=== PATIENT | female | born 1995 | race Caucasian/White ===

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

== ENCOUNTER 2018-06-22 16:14 | Emergency (ER) | payer BC ==
[2018-06-22 17:56] VITALS: BP 129/78
--- NOTE | 2018-06-22 18:17 | UC ---
Respiratory Complaint HPI - HPI Summary HPI Summary: 23-year-old female presents with 4 week history of chest congestion and nonproductive cough. States her symptoms initially started with cold-like symptoms clear nasal congestion, runny nose, sore throat, cough. With the exception of the cough she states that her other symptoms subsided after approximately one week. States over the last week she has noted increased chest congestion and cough has become more harsh particularly at night when she lays down. Denies fever, chills, chest pain, or shortness of breath. - History of Current Complaint Chief Complaint: UCRespiratory Stated Complaint: COUGH Time Seen by Provider: 06/22/18 18:02 Hx Obtained From: Patient Hx Last Menstrual Period: 05/25/18 Pain Intensity: 0 - Allergies/Home Medications Allergies/Adverse Reactions: Allergies Allergy/AdvReac Type Severity Reaction Status Date / Time No Known Allergies Allergy Verified 06/22/18 17:56 PMH/Surg Hx/FS Hx/Imm Hx Previously Healthy: Yes - Denies significant PMH - Surgical History Surgical History: None - Family History Known Family History: Positive: Unknown - Social History Occupation: Student Lives: Dormitory/Roommates Alcohol Use: Occasionally Substance Use Type: None Smoking Status (MU): Never Smoked Tobacco Review of Systems All Other Systems Reviewed And Are Negative: Yes Constitutional: Negative: Fever, Chills Eyes: Negative: Drainage, Eye Redness ENT: Negative: Sore Throat, Ear Ache, Nasal Discharge, Sinus Congestion, Sinus Pain/Tenderness Respiratory: Positive: Cough. Negative: Shortness Of Breath Cardiovascular: Negative: Palpitations, Chest Pain Gastrointestinal: Negative: Abdominal Pain, Vomiting, Diarrhea, Nausea Genitourinary: Positive: Negative Musculoskeletal: Positive: Negative Neurological: Positive: Negative Is Patient Immunocompromised?: No Physical Exam - Summary Physical Exam Summary: GENERAL APPEARANCE: Well developed, well nourished, alert and cooperative, and appears to be in no acute distress. EYES: Conjunctiva clear. No drainage. EARS: External auditory canals and tympanic membranes clear, hearing grossly intact. NOSE: No nasal discharge. THROAT: Pharynx normal. No tonsilar inflammation, swelling, exudate, or lesions. Uvula midline. Oral cavity normal. Teeth and gingiva in good general condition. NECK: Neck supple, non-tender without lymphadenopathy. CARDIAC: Normal S1 and S2. No S3, S4 or murmurs. Rhythm is regular. There is no peripheral edema, cyanosis or pallor. Extremities are warm and well perfused. Capillary refill is less than 2 seconds. Peripheral pulses intact. LUNGS: Clear to auscultation without rales, rhonchi, wheezing or diminished breath sounds. Non-productive cough. ABDOMEN: Positive bowel sounds. Soft, nondistended, nontender. No guarding or rebound. No masses or hepatosplenomegally. MUSKULOSKELETAL: ROM intact to all extremities. No joint erythema or tenderness. Normal muscular development. Normal gait. SKIN: Skin normal color, texture and turgor with no lesions or eruptions. Triage Information Reviewed: Yes Vital Signs: Initial Vital Signs Temp 98.8 F 06/22/18 17:53 Pulse 92 06/22/18 17:53 Resp 16 06/22/18 17:53 BP 129/78 06/22/18 17:53 Pulse Ox 100 06/22/18 17:53 Vital Signs Reviewed: Yes Respiratory Course/Dx - Course Course Of Treatment: 23-year-old female presents with 4 week history of chest congestion and nonproductive cough. States her symptoms initially started with cold-like symptoms clear nasal congestion, runny nose, sore throat, cough. With the exception of the cough she states that her other symptoms subsided after approximately one week. States over the last week she has noted increased chest congestion and cough has become more harsh particularly at night when she lays down. Denies fever, chills, chest pain, or shortness of breath. Afebrile. Vital signs stable. Exam was overall unremarkable except for a nonproductive cough. Considering the duration of her symptoms will treat her with a course of azithromycin for an acute bronchitis as well as recommend symptomatic treatment including Tessalon Perles 1 capsule every 8 hours as needed for cough. She is to return here or follow up with the [facility] if symptoms do not improve within 7 days. Anticipatory guidance warning symptoms reviewed with the patient. Verbalizes understanding and agrees with plan of care. - Differential Dx/Diagnosis Differential Diagnosis/HQI/PQRI: Bronchitis, Lower Resp Infection, Other - URI Provider Diagnosis: Acute bronchitis Discharge - Sign-Out/Discharge Documenting (check all that apply): Patient Departure All imaging exams completed and their final reports reviewed: No Studies - Discharge Plan Condition: Stable Disposition: HOME Prescriptions: Azithromyxin MARIO (NF) [Z-Mario (Zithromax) 250 mg tabs #6] 2 tab PO .TODAY, THEN 1 DAILY #6 tab Benzonatate CAP* [Tessalon 100 MG CAP*] 100 mg PO TID PRN #30 cap PRN Reason: Cough Patient Education Materials: Acute Bronchitis (ED) Referrals: No Primary Care Phys,NOPCP [Primary Care Provider] - Additional Instructions: Your history and exam are consistent with acute bronchitis. Considering the duration of your symptoms we will treat you with an antibiotic. Start azithromycin 2 tabs today then 1 tab a day for next 4 days. Be aware that the cough with bronchitis may persist for 2-3 weeks even you have been treated. Get plenty of rest. Drink plenty of fluids. Run a cool mist humidifer in your room at night. Take over the counter acetaminophen (Tylenol) or ibuprofen (Advil, Motrin) according to directions as needed for pain or fever. Take Tessalon Perles 1 cap every 8 hours as needed for cough. Return here or follow up in [facility] in 7 days if symptoms do not improve. Seek immediate medical attention in the emergency room if you have fever greater than 100.5 F despite taking acetaminophen or ibuprofen, have chest pain , difficulty breathing, or have any worsening of symptoms. - Billing Disposition and Condition Condition: STABLE Disposition: Home
== END 2018-06-22 18:26 | disposition home or self-care (01) ==
LOC: UCCORT 16:14
DX: J20.9 Acute bronchitis, unspecified (principal)
CPT/HCPCS: 99212; G0463